=== PATIENT | female | born 1945 | race Caucasian/White ===

== ENCOUNTER 2016-11-13 06:50 | Day surgery (SDC) | payer MEDICARE ==
[~2016-11-13] VITALS: Ht 154.9 cm; Wt 43.1 kg
[~2016-11-13 06:50] MED LIST: CHOL200024 PO; CYCL-259 PO; FENO130C6 PO; LINA145C PO; LINA290C PO; LISI-167 PO; MAGN400O7 PO; MELO7.5T31 PO; OXYC10TA72 PO; POLY17PO5 PO; SERT100T PO; TERI2.4P SC; ZOLP10TA PO
[2016-11-13] MEDS ORDERED: LACTATED RINGERS 1,000 ML IV SCH (07:35)
[2016-11-13 07:39] VITALS: BP 127/83
[2016-11-13] MEDS ORDERED: MIDAZOLAM 1 MG/ML, 2ML ONE (08:52)
[2016-11-13] MEDS ORDERED: FENTANYL PF 100 MCG/2ML ONE (08:54)
[2016-11-13] MEDS ORDERED: LABETALOL 5MG/ML, 20ML IV PRN (10:30)
[2016-11-13] MEDS ORDERED: OXYcodone 5 MG/5 ML ORAL.SOL UDC PO PRN (10:30)
[2016-11-13] MEDS ORDERED: HYDROmorphone 1 MG/ML, 1ML IV PRN (10:30)
[2016-11-13] MEDS ORDERED: MIDAZOLAM 1 MG/ML, 2ML IV PRN (10:30)
[2016-11-13] MEDS ORDERED: hydrALAzine 20 MG/ML, 1ML IV PRN (10:30)
[2016-11-13] MEDS ORDERED: METOCLOPRAMIDE 5 MG/ML, 2ML IV PRN (10:30)
[2016-11-13] MEDS ORDERED: ONDANSETRON 2MG/ML, 2ML IVPush PRN (10:30)
[2016-11-13] MEDS ORDERED: FENTANYL PF 100 MCG/2ML IV PRN (10:30)
[2016-11-13] MEDS ORDERED: MEPERIDINE/PF 25MG/0.5ML IVPush PRN (10:30)
[2016-11-13] MEDS ORDERED: EPHEDRINE 50 MG/ML, 1ML IVPush PRN (10:30)
[2016-11-13] MEDS ORDERED: ALBUTEROL SULFATE 2.5 MG/3 ML NPPB PRN (10:30)
== END 2016-11-13 11:40 ==
LOC: OUT 06:50
PROVIDERS: ATTEND Internal Medicine Geriatric Medicine
DX: K83.8 Other specified diseases of biliary tract (principal); K86.1 Other chronic pancreatitis; K31.89 Other diseases of stomach and duodenum; I10 Essential (primary) hypertension; E78.5 Hyperlipidemia, unspecified; F41.9 Anxiety disorder, unspecified; Z87.39 Personal history of other diseases of the musculoskeletal system and connective tissue; Z98.890 Other specified postprocedural states; Z90.710 Acquired absence of both cervix and uterus
CPT/HCPCS: 43239; 43242; 43277; 88172; 88173; 88177; 88305; 88307; J2250; J3010; J7120

== ENCOUNTER 2017-02-05 07:56 | Day surgery (SDC) | payer MEDICARE ==
[~2017-02-05] VITALS: Ht 157.5 cm; Wt 43.1 kg
[~2017-02-05 07:56] MED LIST changes: +ASPI-621 PO
[2017-02-05] MEDS ORDERED: LACTATED RINGERS 1,000 ML IV SCH (08:32)
[2017-02-05] MEDS ORDERED: LIDOCAINE 1%, 2ML ONE (08:32)
[2017-02-05 08:35] VITALS: BP 156/104
[2017-02-05] MEDS ORDERED: CYCL-259 PO (08:39)
[2017-02-05] MEDS ORDERED: PANT20TA2 PO (08:40)
[2017-02-05] MEDS ORDERED: LIPA1CAP61 PO (08:52)
[2017-02-05] MEDS ORDERED: LIDOCAINE 1%, 2ML SQ PRN (09:00)
[2017-02-05 09:04] LABS: ASPARTATE AMINO TRANSFERASE 25 U/L (15-37); BLOOD UREA NITROGEN 20 mg/dL (7-18)
[2017-02-05] MEDS ORDERED: PROPOFOL 10 MG/ML, 20ML ONE (10:12)
[2017-02-05] MEDS ORDERED: ROCURONIUM 10 MG/ML,10ML ONE (10:13)
[2017-02-05] MEDS ORDERED: SUCCINYLCHOLINE 20 MG/ML, 10ML ONE (10:13)
[2017-02-05] MEDS ORDERED: FENTANYL PF 100 MCG/2ML ONE (10:17)
[2017-02-05] MEDS ORDERED: MIDAZOLAM 1 MG/ML, 2ML ONE (10:17)
[2017-02-05] MEDS ORDERED: ONDANSETRON 2MG/ML, 2ML ONE (10:28)
[2017-02-05] MEDS ORDERED: DEXAMETHASONE 4 MG/ML, 1ML ONE (10:28)
[2017-02-05] MEDS ORDERED: MIDAZOLAM 1 MG/ML, 2ML IV PRN (11:00)
[2017-02-05] MEDS ORDERED: ACETAMINOPHEN 325 MG TABLET PO PRN (11:00)
[2017-02-05] MEDS ORDERED: ONDANSETRON 2MG/ML, 2ML IVPush PRN (11:00)
[2017-02-05] MEDS ORDERED: FENTANYL PF 100 MCG/2ML IV PRN (11:00)
[2017-02-05] MEDS ORDERED: PROMETHAZINE 25 MG/ML, 1ML IV PRN (11:00)
[2017-02-05] MEDS ORDERED: HYDROmorphone 1 MG/ML, 1ML IV PRN (11:00)
[2017-02-05] MEDS ORDERED: EPHEDRINE 50 MG/ML, 1ML IVPush PRN (11:00)
[2017-02-05] MEDS ORDERED: OXYcodone 5 MG/5 ML ORAL.SOL UDC PO PRN (11:00)
[2017-02-05] MEDS ORDERED: hydrALAzine 20 MG/ML, 1ML IV PRN (11:00)
[2017-02-05] MEDS ORDERED: LABETALOL 5MG/ML, 20ML IV PRN (11:00)
[2017-02-05] MEDS ORDERED: HYDROcodone/APAP 7.5-325MG/15ML UDC PO PRN (11:00)
[2017-02-05] MEDS ORDERED: KETOROLAC 30 MG/1 ML IV PRN (11:00)
[2017-02-05] MEDS ORDERED: METOCLOPRAMIDE 5 MG/ML, 2ML IV PRN (11:00)
[2017-02-05] MEDS ORDERED: METOPROLOL 1 MG/ML, 5ML IV PRN (11:00)
[2017-02-05] MEDS ORDERED: ALBUTEROL SULFATE 2.5 MG/3 ML NPPB PRN (11:00)
[2017-02-05] MEDS ORDERED: MEPERIDINE/PF 25MG/0.5ML IVPush PRN (11:00)
== END 2017-02-05 12:20 ==
LOC: OUT 07:56
PROVIDERS: ATTEND Internal Medicine
DX: K86.1 Other chronic pancreatitis (principal); I10 Essential (primary) hypertension; E78.5 Hyperlipidemia, unspecified; F41.9 Anxiety disorder, unspecified; Z87.39 Personal history of other diseases of the musculoskeletal system and connective tissue; Z90.710 Acquired absence of both cervix and uterus; Z98.890 Other specified postprocedural states
CPT/HCPCS: 36415; 43259; 80053; 93005; J0330; J1100; J2250; J2405; J2704; J3010; J3490; J7120

== ENCOUNTER 2017-03-05 07:59 | Day surgery (SDC) | payer MEDICARE ==
[~2017-03-05] VITALS: Ht 157.5 cm; Wt 43.5 kg
[~2017-03-05 07:59] MED LIST changes: +LIPA1CAP61 PO; +PANT20TA2 PO
[2017-03-05] MEDS ORDERED: LACTATED RINGERS 1,000 ML IV SCH (08:14)
[2017-03-05 08:31] VITALS: BP 143/82
[2017-03-05] MEDS ORDERED: FENTANYL PF 100 MCG/2ML ONE (08:52)
[2017-03-05] MEDS ORDERED: MIDAZOLAM 1 MG/ML, 2ML ONE (08:52)
[2017-03-05] MEDS ORDERED: PROMETHAZINE 25 MG/ML, 1ML IV PRN (09:00)
[2017-03-05] MEDS ORDERED: FENTANYL PF 100 MCG/2ML IV PRN (09:00)
[2017-03-05] MEDS ORDERED: ACETAMINOPHEN 325 MG TABLET PO PRN (09:00)
[2017-03-05] MEDS ORDERED: OXYcodone 5 MG/5 ML ORAL.SOL UDC PO PRN (09:00)
[2017-03-05] MEDS ORDERED: KETOROLAC 30 MG/1 ML IV PRN (09:00)
[2017-03-05] MEDS ORDERED: METOPROLOL 1 MG/ML, 5ML IV PRN (09:00)
[2017-03-05] MEDS ORDERED: ALBUTEROL SULFATE 2.5 MG/3 ML NPPB PRN (09:00)
[2017-03-05] MEDS ORDERED: EPHEDRINE 50 MG/ML, 1ML IVPush PRN (09:00)
[2017-03-05] MEDS ORDERED: HYDROmorphone 1 MG/ML, 1ML IV PRN (09:00)
[2017-03-05] MEDS ORDERED: MEPERIDINE/PF 25MG/0.5ML IVPush PRN (09:00)
[2017-03-05] MEDS ORDERED: hydrALAzine 20 MG/ML, 1ML IV PRN (09:00)
[2017-03-05] MEDS ORDERED: METOCLOPRAMIDE 5 MG/ML, 2ML IV PRN (09:00)
[2017-03-05] MEDS ORDERED: LABETALOL 5MG/ML, 20ML IV PRN (09:00)
[2017-03-05] MEDS ORDERED: ONDANSETRON 2MG/ML, 2ML IVPush PRN (09:00)
[2017-03-05] MEDS ORDERED: HYDROcodone/APAP 7.5-325MG/15ML UDC PO PRN (09:00)
[2017-03-05] MEDS ORDERED: DEXAMETHASONE 4 MG/ML, 1ML ONE (09:15)
[2017-03-05] MEDS ORDERED: ONDANSETRON 2MG/ML, 2ML ONE ×2 (09:15)
[2017-03-05] MEDS ORDERED: ATROPINE 0.4 MG/ML, 1ML ONE (09:29)
[2017-03-05] MEDS ORDERED: ROCURONIUM 10 MG/ML,10ML ONE (09:30)
[2017-03-05] MEDS ORDERED: PROPOFOL 10 MG/ML, 20ML ONE (09:30)
[2017-03-05] MEDS ORDERED: SUCCINYLCHOLINE 20 MG/ML, 10ML ONE (09:30)
[2017-03-05] MEDS ORDERED: OMNIPAQUE 350 MG/ML, 50 ML BOTTLE ONE (10:37)
[2017-03-05] MEDS ORDERED: INDOMETHACIN 50 MG SUPP.RECT ONE (10:44)
[2017-03-05] MEDS ORDERED: INDOMETHACIN 50 MG SUPP.RECT PR ONE (11:00)
== END 2017-03-05 12:30 ==
LOC: OUT 07:59
PROVIDERS: ATTEND Internal Medicine
DX: K80.50 Calculus of bile duct without cholangitis or cholecystitis without obstruction (principal); I10 Essential (primary) hypertension
CPT/HCPCS: 43264; 74330; C1769; J0330; J0461; J1100; J2250; J2405; J2704; J3010; J7120; Q9967